=== PATIENT | male | born 1970 | race Caucasian/White ===

== ENCOUNTER 2022-02-18 06:06 | Emergency (ER) | payer BC, SELFPAY ==
[2022-02-18 06:14] VITALS: BP 189/94; PULSE 82; RESP 18; TEMP 37; O2SAT 99; BMI 31.7
--- NOTE | 2022-02-18 06:32 | ED_ITS ---
HPI - General Adult General Time Seen by Provider: 06:32 Date Seen: 02/18/22 Chief complaint: Eye Problems Stated complaint: Right eye issue Time Seen by Provider: 02/18/22 06:13 Source: patient and RN notes reviewed Mode of arrival: ambulatory Limitations: no limitations History of Present Illness HPI narrative: 51-year-old male who comes in today with concern for swelling of the right side of his face. He had what he describes as a sliver in this area that he picked out a couple days ago and now is having increased swelling and pain. Denies fevers, chills. Also notes that he had a tick on his left lower quadrant of the abdomen last week that he cut off. Related Data Home Medications Medication Instructions Recorded Confirmed aspirin 81 mg tablet,delayed 81 mg PO QDAY 10/03/21 02/18/22 release (Adult Low Dose Aspirin) rosuvastatin 10 mg tablet 10 mg PO HS 02/18/22 02/18/22 Previous Rx's Medication Instructions Recorded metoprolol succinate 50 mg 50 mg PO DAILY #90 tabs 10/03/21 tablet,extended release 24 hr amoxicillin 875 mg tablet 875 mg PO BID #10 tabs 02/18/22 doxycycline monohydrate 100 mg 100 mg PO BID #10 caps 02/18/22 capsule Allergies Allergy/AdvReac Type Severity Reaction Status Date / Time No Known Allergies Allergy Verified 02/18/22 06:17 Review of Systems Status of ROS: Reports: 10 or more systems reviewed and unremarkable except as noted in History and below PFSH PFS Medical History (Updated 02/18/22 @ 06:36 by Ld Berger MD) Arthralgia of multiple joints Elevated liver function tests HTN (hypertension) Hyperlipidemia [place]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 Obesity Surgical History (Updated 02/18/22 @ 06:33 by Robert Vazquez RN) No significant past surgical history Social History Smoking Status: Never smoker Second hand tobacco smoke exposure: No How often do you have a drink containing alcohol: never How often do you have six or more drinks on one occasion: Never AUDIT-C Alcohol total score: 0 Non-prescribed substance use: denies use Exam Narrative: Exam Narrative: General: well nourished , NAD Head: Atraumatic and normocephalic ENT: External ears and external nose are normal Eyes: Conjunctiva clear, pupils are equal reactive, external ocular motions are intact Neck: Full spontaneous range of motion of the neck Lungs: No respiratory distress Musculoskeletal: No tenderness or deformity Neurologic: No gross focal neurologic deficits Skin: No rashes. 2mm superficial open area of the right lateral zygomatic arch with surrounding erythema and redness. No proptosis, no pain with external ocular movements. Also small skin ulceration of left lower quadrant. Psych: Mood and affect are appropriate Const: Vital Signs, click to edit/add: Vital Signs - 24 hr 02/18/22 06:14 02/18/22 06:39 Temperature 98.6 F 98.6 F Pulse Rate [Right Pulse Oximeter] 82 82 Respiratory Rate 18 18 Blood Pressure [Ri ght Upper Arm] 189/94 H 189/94 H Pulse Oximetry 99 Oxygen Delivery Me thod Room Air Course Course Hospital Course: Patient seen examined, prior records reviewed. Patient presents with small wound to the right-sided space with surrounding redness and warmth. Most consistent with a superficial infection, no evidence for retrobulbar cellulitis or abscess. Patient was started on amoxicillin and doxycycline and discharged. Vital Signs Vital signs: Initial Vital Signs Temperature 98.6 F 02/18/22 06:14 Temperature Source Temporal Artery Scan 02/18/22 06:14 Pulse Rate 82 02/18/22 06:14 Respiratory Rate 18 02/18/22 06:14 Blood Pressure 189/94 H 02/18/22 06:14 Blood Pressure Mean 125 02/18/22 06:14 Blood Pressure Position Sitting 02/18/22 06:14 Pulse Oximetry 99 02/18/22 06:14 Oxygen Delivery Method 02/18/22 06:14 Vital Signs Temperature 98.6 F 02/18/22 06:14 Pulse Rate 82 02/18/22 06:14 Respiratory Rate 18 02/18/22 06:14 Blood Pressure 189/94 H 02/18/22 06:14 Pulse Oximetry 99 02/18/22 06:14 Oxygen Delivery Method 02/18/22 06:14 Temperature 98.6 F 02/18/22 06:39 Pulse Rate 82 02/18/22 06:39 Respiratory Rate 18 02/18/22 06:39 Blood Pressure 189/94 H 02/18/22 06:39 Pulse Oximetry 99 02/18/22 06:14 Oxygen Delivery Method 11/22/22 06:14 Medical Decision Making Medical Records Medical records reviewed: Yes I reviewed the patient's medical records Lab Data Lab results reviewed: Yes I reviewed the patient's lab results Discharge Plan Discharge Clinical Impression: Infected abrasion of face Patient Disposition: Home, Self-Care Condition: Stable Instructions: Wound Infection (DC) Additional Instructions: Wash the area gently daily with soap and water. Take antibiotics as prescribed. Activity Level: No Restrictions Discharge Diet: Regular Prescriptions: New amoxicillin 875 mg tablet 875 mg PO BID Qty: 10 0RF doxycycline monohydrate 100 mg capsule 100 mg PO BID Qty: 10 0RF No Action aspirin [Adult Low Dose Aspirin] 81 mg tablet,delayed release (DR/EC) 81 mg PO QDAY metoprolol succinate 50 mg tablet extended release 24 hr 50 mg PO DAILY Qty: 90 3RF Rx Instructions: due for clinic visit rosuvastatin 10 mg tablet 10 mg PO HS Follow Up/Referrals: Anthony Coburn MD [Primary Care Provider] - Stand Alone Forms: [employer] Info Instructions
[2022-02-18 06:39] VITALS: BP 189/94; PULSE 82; RESP 18; TEMP 37
== END 2022-02-18 06:50 | disposition home or self-care (01) ==
LOC: ED 06:43
PROVIDERS: Emergency Provider Family Medicine; PCP Family Medicine
DX: S00.85XA Superficial foreign body of other part of head, initial encounter (principal); L08.9 Local infection of the skin and subcutaneous tissue, unspecified; X58.XXXA Exposure to other specified factors, initial encounter
CPT/HCPCS: 99283

== ENCOUNTER 2022-11-10 09:37 | Outpatient (CLI) | payer BC, SELFPAY ==
[2022-11-11 22:51] LABS: Sex Hormone Binding Globulin 23 nmol/L (19-76); Testosterone, Adult Male 310 ng/dL (300-890); Testosterone, Free Calculation 67 pg/mL (47-244); Testosterone, Percentage Free 2.1 % (1.6-2.9)
== END 2022-11-10 09:38 | disposition home or self-care (01) ==
PROVIDERS: PCP Family Medicine; Visit Provider Family Medicine
DX: Z00.00 Encounter for general adult medical examination without abnormal findings (principal); R53.83 Other fatigue; R73.03 Prediabetes; E78.5 Hyperlipidemia, unspecified; E66.9 Obesity, unspecified; I10 Essential (primary) hypertension; R79.89 Other specified abnormal findings of blood chemistry
CPT/HCPCS: 80053; 80061; 84153; 84270; 84402; 84403; 84443

== ENCOUNTER 2024-01-22 11:11 | Outpatient (CLI) | payer BC, SELFPAY | END 2024-01-22 11:12 | disposition home or self-care (01) | PROVIDERS: PCP Family Medicine; Visit Provider Family Medicine | DX: Z00.00 Encounter for general adult medical examination without abnormal findings (principal); E78.5 Hyperlipidemia, unspecified; R53.83 Other fatigue; I10 Essential (primary) hypertension; G47.19 Other hypersomnia; R73.03 Prediabetes; E66.9 Obesity, unspecified; R79.89 Other specified abnormal findings of blood chemistry; I49.9 Cardiac arrhythmia, unspecified | CPT/HCPCS: 80053; 80061; 84270; 84402; 84403 ==

== ENCOUNTER 2024-06-30 15:29 | Outpatient (CLI) | payer OTHER, SELFPAY | END 2024-06-30 15:30 | disposition home or self-care (01) | LOC: LKVREF 15:31 | PROVIDERS: PCP Family Medicine; Visit Provider Family Medicine | DX: L03.113 Cellulitis of right upper limb (principal) | CPT/HCPCS: 86140 ==

== ENCOUNTER 2024-10-10 16:20 | Outpatient (CLI) | payer OTHER, SELFPAY | END 2024-10-10 16:21 | disposition home or self-care (01) | LOC: NFLDREF 10-12 15:11 | PROVIDERS: PCP Family Medicine; Referring Provider Family Medicine; Visit Provider Family Medicine | DX: I49.9 Cardiac arrhythmia, unspecified (principal); I10 Essential (primary) hypertension; R53.83 Other fatigue | CPT/HCPCS: 84443 ==